=== PATIENT | male | born 1955 | race Caucasian/White ===

== ENCOUNTER 2016-08-06 09:45 | Outpatient (CLI) | payer OTHER ==
[~2016-08-06 09:45] MED LIST: ACHD5005 PO; AMIO100T2 PO; AMIO400T5 PO; AMLO10TA4 PO; AMOX500C2 PO; ASPI-875 PO; LSNP10T PO; METHOTREXATE PO; MTP50T PO; RNT150T PO; SIMV80TA3 PO; WRF2.5T PO; WRF5T PO
== END 2016-08-06 10:13 | disposition home or self-care (01) ==
LOC: SLEEP 09:45
PROVIDERS: ATTEND Nurse Practitioner
DX: G47.10 Hypersomnia, unspecified (principal); I10 Essential (primary) hypertension